=== PATIENT | female | born 1995 | race Caucasian/White ===

== ENCOUNTER 2017-09-22 11:25 | Emergency (ER) | payer OTHER ==
[~2017-09-22] VITALS: Ht 170.2 cm; Wt 62.2 kg
[2017-09-22 11:38] VITALS: BP 128/56; PULSE 83; TEMP 99
[2017-09-22] MEDS ORDERED: TENORMIN 2525 MG/TAB PO (12:52)
[2017-09-22] MEDS ORDERED: LOPRESSOR 225 MG/TAB PO (12:52)
[2017-09-22] MEDS ORDERED: PORTIA-28 30 MC1 TAB PO (12:52)
[2017-09-22 13:50] LABS: STREP SCREEN NEGATIVE
[2017-09-22 13:56] LABS: INFLUENZA A NEGATIVE; INFLUENZA B NEGATIVE
[2017-09-22] MEDS ORDERED: FLONASEALLERGY NS (14:04)
== END 2017-09-22 14:08 | disposition home or self-care (01) ==
LOC: COL.ER 11:25
PROVIDERS: Nurse Practitioner
DX: R42 Dizziness and giddiness (principal); I45.6 Pre-excitation syndrome

== ENCOUNTER → 2017-10-06 | Outpatient (CLI) | payer OTHER ==
[~2017-10-06] MED LIST: FLONASEALLERGY NS; LOPRESSOR 225 MG/TAB PO; PORTIA-28 30 MC1 TAB PO; TENORMIN 2525 MG/TAB PO
== END ==
LOC: COL.RAD 14:33
DX: H93.19 Tinnitus, unspecified ear (principal); H53.9 Unspecified visual disturbance; R42 Dizziness and giddiness